=== PATIENT | male | born 1985 | race Caucasian/White ===

== ENCOUNTER 2017-02-03 20:59 | Emergency (ER) | payer MEDICAID ==
[2017-02-03 23:49] VITALS: BP 134/78
== END 2017-02-03 22:34 | disposition home or self-care (01) ==
LOC: ED 20:59
DX: L60.0 Ingrowing nail (principal); R03.0 Elevated blood-pressure reading, without diagnosis of hypertension; J45.909 Unspecified asthma, uncomplicated

== ENCOUNTER 2017-07-09 22:22 | Emergency (ER) | payer OTHER ==
[~2017-07-09] VITALS: Ht 177.8 cm; Wt 190.5 kg
[2017-07-09 22:45] VITALS: Ht 177.8 cm; Wt 190.5 kg
[2017-07-10 09:38] VITALS: BP 149/88
== END 2017-07-10 09:38 | disposition home or self-care (01) ==
LOC: ED 22:22
DX: J20.9 Acute bronchitis, unspecified (principal); J45.909 Unspecified asthma, uncomplicated

== ENCOUNTER 2017-08-04 23:41 | Emergency (ER) | payer OTHER ==
[~2017-08-04] VITALS: Ht 177.8 cm; Wt 201.8 kg
[2017-08-04 23:46] VITALS: Ht 177.8 cm; Wt 201.8 kg
[2017-08-05 02:06] LABS: BASOPHIL % 0.5 % (0-2); PLATELET COUNT 271 x10^3mcL (130-400)
[2017-08-05 02:21] LABS: CALCIUM 8.8 mg/dL (8.5-10.1); CARBON DIOXIDE 28.2 mmol/L (21-32); CHLORIDE SERUM 103 mmol/L (98-107); CREATININE SERUM 0.9 mg/dL (0.7-1.3); GFR1 > 60 mL/min; GLUCOSE SERUM 104 mg/dL (74-106); POTASSIUM SERUM 3.8 mmol/L (3.5-5.1); SODIUM SERUM 139 mmol/L (136-145)
[2017-08-05 02:25] LABS: ALBUMIN 3.7 g/dL (3.4-5.0); ALKALINE PHOSPHATASE 53 U/L (46-116); ALT/SGPT 41 U/L (16-63); AST/SGOT 25 U/L (15-37); BILIRUBIN TOTAL 0.45 mg/dL (0.20-1.00); LIPASE 106 IU/L (73-393); TOTAL PROTEIN, SERUM 7.6 g/dL (6.4-8.2)
[2017-08-05 04:32] VITALS: BP 133/76
== END 2017-08-05 04:32 | disposition home or self-care (01) ==
LOC: ED 23:41
PROVIDERS: Emergency Medicine
DX: R10.13 Epigastric pain (principal); R19.7 Diarrhea, unspecified; R10.33 Periumbilical pain; J45.909 Unspecified asthma, uncomplicated
CPT/HCPCS: J1170; J2405

== ENCOUNTER 2017-10-05 00:59 | Emergency (ER) | payer OTHER ==
[~2017-10-05] VITALS: Ht 177.8 cm; Wt 205.5 kg
[2017-10-05 01:03] VITALS: BP 166/103; Ht 177.8 cm; Wt 205.5 kg
== END 2017-10-05 03:08 | disposition left against medical advice (07) ==
LOC: ED 00:59
DX: Z53.21 Procedure and treatment not carried out due to patient leaving prior to being seen by health care provider (principal)

== ENCOUNTER 2017-10-22 22:51 | Emergency (ER) | payer OTHER ==
[~2017-10-22] VITALS: Ht 177.8 cm; Wt 199.1 kg
[2017-10-22 22:58] VITALS: Ht 177.8 cm; Wt 199.1 kg
[2017-10-23 04:49] VITALS: BP 123/64
== END 2017-10-23 04:49 | disposition home or self-care (01) ==
LOC: ED 22:51
DX: M54.10 Radiculopathy, site unspecified (principal); M79.604 Pain in right leg; J45.909 Unspecified asthma, uncomplicated; Z90.49 Acquired absence of other specified parts of digestive tract
CPT/HCPCS: J1885; Q0092

== ENCOUNTER 2017-10-31 21:41 | Emergency (ER) | payer OTHER ==
[~2017-10-31] VITALS: Ht 177.8 cm; Wt 196.4 kg
[2017-10-31 21:46] VITALS: Ht 177.8 cm; Wt 196.4 kg
[2017-10-31 23:13] VITALS: BP 150/85
== END 2017-10-31 23:13 | disposition home or self-care (01) ==
LOC: ED 21:41
DX: G57.01 Lesion of sciatic nerve, right lower limb (principal); J45.909 Unspecified asthma, uncomplicated; Z90.49 Acquired absence of other specified parts of digestive tract
CPT/HCPCS: 82962

== ENCOUNTER 2017-12-25 00:05 | Emergency (ER) | payer OTHER ==
[~2017-12-25] VITALS: Ht 177.8 cm; Wt 189.1 kg
[2017-12-25 00:11] VITALS: Ht 177.8 cm; Wt 189.1 kg
[2017-12-25 02:11] VITALS: BP 152/101
== END 2017-12-25 02:11 | disposition home or self-care (01) ==
LOC: ED 00:05
DX: S86.911A Strain of unspecified muscle(s) and tendon(s) at lower leg level, right leg, initial encounter (principal); J45.909 Unspecified asthma, uncomplicated; Z90.49 Acquired absence of other specified parts of digestive tract; X58.XXXA Exposure to other specified factors, initial encounter; Y93.89 Activity, other specified; Y92.89 Other specified places as the place of occurrence of the external cause; Y99.8 Other external cause status

== ENCOUNTER 2018-06-27 00:47 | Emergency (ER) | payer OTHER ==
[~2018-06-27] VITALS: Ht 177.8 cm; Wt 188.0 kg
[2018-06-27 02:39] VITALS: BP 158/84
== END 2018-06-27 02:39 | disposition home or self-care (01) ==
LOC: ED 00:47
DX: M25.561 Pain in right knee (principal); Z90.49 Acquired absence of other specified parts of digestive tract
CPT/HCPCS: J1885

== ENCOUNTER 2018-10-01 20:14 | Emergency (ER) | payer OTHER ==
[~2018-10-01] VITALS: Ht 165.1 cm; Wt 182.3 kg
[2018-10-01 20:38] VITALS: Ht 165.1 cm; Wt 182.3 kg
[2018-10-01 21:38] VITALS: BP 138/85
== END 2018-10-01 21:38 | disposition home or self-care (01) ==
LOC: ED 20:14
DX: J01.90 Acute sinusitis, unspecified (principal); J45.909 Unspecified asthma, uncomplicated; Z90.49 Acquired absence of other specified parts of digestive tract

== ENCOUNTER 2018-11-21 23:56 | Emergency (ER) | payer OTHER ==
[~2018-11-21] VITALS: Ht 177.8 cm; Wt 178.3 kg
[2018-11-22 00:03] VITALS: Ht 177.8 cm; Wt 178.3 kg
[2018-11-22 01:18] VITALS: BP 117/59
== END 2018-11-22 01:18 | disposition home or self-care (01) ==
LOC: ED 23:56
DX: J02.9 Acute pharyngitis, unspecified (principal); E66.01 Morbid (severe) obesity due to excess calories; Z68.43 Body mass index [BMI] 50.0-59.9, adult; Z90.49 Acquired absence of other specified parts of digestive tract
CPT/HCPCS: J0561; J1100

== ENCOUNTER 2019-01-04 18:13 | Emergency (ER) | payer OTHER ==
[~2019-01-04] VITALS: Ht 180.3 cm; Wt 184.6 kg
[2019-01-04 18:18] VITALS: Ht 180.3 cm; Wt 184.6 kg
[2019-01-04 19:05] LABS: microscopic required? YES; urine erythrocyte 3+ (NEGATIVE)
[2019-01-04 19:15] VITALS: BP 124/69
== END 2019-01-04 19:16 | disposition home or self-care (01) ==
LOC: ED 18:13
PROVIDERS: Emergency Medicine
DX: N39.0 Urinary tract infection, site not specified (principal); J45.909 Unspecified asthma, uncomplicated; Z90.49 Acquired absence of other specified parts of digestive tract